=== PATIENT | male | born 1970 | race Caucasian/White ===

== ENCOUNTER 2023-01-01 11:54 | Emergency (ER) | payer MEDICAID ==
[~2023-01-01] VITALS: Ht 162.6 cm; Wt 67.6 kg
[2023-01-01 12:11] VITALS: BP 137/91; PULSE 93; RESP 14; TEMP 97.5; O2SAT 99
[2023-01-01 14:47] VITALS: BP 135/87; PULSE 91; RESP 14; TEMP 97.5; O2SAT 99
== END 2023-01-01 14:47 | disposition home or self-care (01) ==
LOC: MED 11:54
DX: S92.411A Displaced fracture of proximal phalanx of right great toe, initial encounter for closed fracture (principal); E11.9 Type 2 diabetes mellitus without complications; Z88.0 Allergy status to penicillin; W22.8XXA Striking against or struck by other objects, initial encounter; Y93.89 Activity, other specified; Y92.89 Other specified places as the place of occurrence of the external cause; Y99.8 Other external cause status
CPT/HCPCS: 73660; 99283